=== PATIENT | female | born 1985 | race Hispanic/Latino ===

== ENCOUNTER 2021-11-30 22:15 | Emergency (ER) | payer OTHER ==
[2021-12-01] MEDS ORDERED: HYDROcodone/ACETAMINOPHEN 5-325 MG TAB PO STA (01:07)
[2021-12-01] MEDS ORDERED: TETANUS,DIPH,PERTUSS(ACELL) VACCINE 0.5 ML SYRINGE IM ONE (01:07)
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
[2021-12-01 05:01] VITALS: BP 142/68
== END 2021-12-01 03:49 | disposition home or self-care (01) ==
LOC: ED 22:15
DX: T22.00XA Burn of unspecified degree of shoulder and upper limb, except wrist and hand, unspecified site, initial encounter (principal); T22.012A Burn of unspecified degree of left forearm, initial encounter
CPT/HCPCS: 90471; 90715; 99282